=== PATIENT | female | born 1945 | race Caucasian/White ===

== ENCOUNTER 2017-08-17 08:53 | Day surgery (SDC) | payer MEDICARE ==
[2017-08-17] MEDS ORDERED: Lactated Ringer's 1,000 ML IV ONE (09:12)
[2017-08-17] MEDS ORDERED: Lidocaine 2% MPF (5 ml) Inj ONE (11:40)
[2017-08-17] MEDS ORDERED: Propofol 10 mg/ml Inj (20 ML) ONE (11:40)
[2017-08-17 12:06] VITALS: RESP 14; TEMP 97.9
[2017-08-17 12:32] VITALS: BP 127/59; PULSE 56; O2SAT 98
== END 2017-08-17 12:32 | disposition home or self-care (01) ==
LOC: H.ENDO 08:53
PROVIDERS: ATTEND Internal Medicine Gastroenterology
DX: Z86.012 Personal history of benign carcinoid tumor (principal); K21.9 Gastro-esophageal reflux disease without esophagitis
CPT/HCPCS: 57522; 88305; J2704; J3010; J7120